=== PATIENT | male | born 1950 | race Caucasian/White ===

== ENCOUNTER 2022-08-05 08:36 | Emergency (ER) | payer OTHER, MEDICAID ==
[~2022-08-05] VITALS: Ht 1 cm; Wt 0.5 kg
[2022-08-05] MEDS ORDERED: CALCIUM CHLOR(10%) 100MG/ML 10ML SYRINGE IV ONE (08:37)
[2022-08-05] MEDS ORDERED: SODIUM BICARBONATE 8.4% INJ 50ML SYRINGE IV ONE (08:37)
[2022-08-05] MEDS ORDERED: EPINEPHrine HCL 1 MG/10 ML SYRG IV ONE (08:37)
== END 2022-08-05 17:29 ==
LOC: EDBD 08:36 → ER 08:36
DX: I46.9 Cardiac arrest, cause unspecified (principal); I25.10 Atherosclerotic heart disease of native coronary artery without angina pectoris; N18.6 End stage renal disease; Z99.2 Dependence on renal dialysis
CPT/HCPCS: 92950; 99285; J0171